=== PATIENT | female | born 1990 | race Caucasian/White ===

== ENCOUNTER 2024-10-23 08:00 | Outpatient (RCR) | payer SELFPAY ==
--- NOTE | 2024-10-23 09:00 | BH.COMM_ITS ---
Communication Note Communication with Client Communication Note: Met with pt to complete paperwork, update any changes to pre-admission screening, and complete risk assessment. Low-moderate risk on [place] Suicide Screening. Denies any suicidal ideations for the past 4 weeks. Protective factors. Consulted with Dr. Engel regarding current symptoms with orders to admit to IOP with dx of F33.2
--- NOTE | 2024-10-23 09:05 | BH.SGPN.GN ---
Behaviors/Verbalizations/Mental Status: [] Eye contact is good. Motor activity is appropriate. Appearance is casual. Speech is Appropriate. Mood is euthymic. Affect is full. Thoughts are linear and logical. No evidence of psychosis. Reviewed daily check in sheet and pt reports 1/5 for suicidal thoughts and 1/5 for intent. Risk assessment completed prior to group. No imminent risk. Client Response/Progress/Benefit: [] Pt participated when prompted. Attentive. Daily symptom tracker notes 4/5 for depression, 5/5 for anxiety, and 4/5 for agitation. Today was pt?s first day in IOP level of care. Briefly shared a little about herself and what led to her seeking out IOP. Pt reports depression and anxiety which have significantly impacted her functioning in the past several months. No progress noted as this was her first day. Group provided support as well as feedback for her first day in IOP which was beneficial. Will continue in IOP to maintain safety, prevent decompensation, increase healthy coping, and improve functioning to return to work Narrative Note: []
--- NOTE | 2024-10-23 10:10 | BH.SGPN.GN ---
Behaviors/Verbalizations/Mental Status: [] Client alert and oriented, casually dressed and groomed. Eye contact good. Motor activity appropriate. Speech within normal limits. Affect congruent, mood depressed and anxious. Thoughts linear, logical, no signs of hallucinations or delusions. Client Response/Progress/Benefit: [] Client responded well to session AEB contributing to discussion, taking notes, and listening attentively to others. Group discussed the benefits of managed anger and anger as a secondary emotion. Client participated in anger iceberg discussion. Group reported outward personal signs of anger as lashing out verbally, physical fights, destruction of property, self-harm, and self-sabotage. Group Identified underlying emotions that contribute to anger including being dismissed, rejection, assumptions, being lied too, and micromanaging. Appeared to benefit from increased knowledge of the underlying emotions that impact anger and increased self-awareness of the internal and external consequences of anger. Client will continue IOP program to stabilize mood, reduce negative thinking patterns, and prevent decompensation. Narrative Note: []
--- NOTE | 2024-10-23 11:10 | BH.SGPN.GN ---
Behaviors/Verbalizations/Mental Status: [] client alert and oriented, casually dressed and groomed. Eye contact good. Motor activity appropriate. Speech within normal limits. Affect congruent, mood euthymic. Thoughts linear, logical, no signs of hallucinations or delusions. Client Response/Progress/Benefit: [] Client was an engaged participant throughout group AEB client providing input throughout discussion. Client contributed to the continued discussion of how people express anger as well as the underlying emotions of anger. Client participated in group activity that highlighted strategies to cope with anger. Group brainstormed healthy coping skills to help prevent anger and cope with it in the moment which included: mindfulness, deep breathing, journaling, going outside, and music. Client stated would like to try the skill of using temperature change by holding ice to manage anger in the moment. Client appeared to benefit from brainstorming with the group potential strategies to manage anger in healthy ways. Recommended continued IOP to improve healthy coping, improve daily functioning, and prevent decompensation.
--- NOTE | 2024-10-24 09:05 | BH.SGPN.GN ---
Behaviors/Verbalizations/Mental Status: [] Eye contact is good. Motor activity is appropriate. Appearance is casual. Speech is Appropriate. Mood is anxious. Affect is congruent. Thoughts are linear and logical. No evidence of psychosis. Reviewed daily check in sheet and pt reports 1/5 for suicidal ideations and 0/5 for intent. Improvement from yesterday. Client Response/Progress/Benefit: [] Pt was an active participant in group discussions. Attentive. Daily symptom tracker notes 4/5 for anxiety and 3/5 for agitation as well as depression. Pt was able to identify mental health wins which included good night's sleep and utilizing skills to encouraged acceptance and decrease guilt. Feeling hopeful today. Briefly shared that she continues to have bad self-talk which impacts her emotions and behaviors. Progress noted. Benefited from group support, encouragement, and feedback. Will continue in IOP to prevent decompensation, increase healthy coping, and improve functioning. Narrative Note: []
--- NOTE | 2024-10-24 10:10 | BH.SGPN.GN ---
Behaviors/Verbalizations/Mental Status: []Eye contact is good. Motor activity is appropriate. Appearance is casual. Speech is Appropriate. Mood is anxious. Affect is congruent. Thoughts are linear and logical. No evidence of psychosis. Client Response/Progress/Benefit: [] Pt participated in the group discussions AEB providing input and taking notes at times. Attentive during psychoeducation on SMART Goal Setting. Pt worked with group to identify common barriers to goal setting which included; mental health struggles, energy/motivation, limited support, change to routine, lack or resources, having unrealistic goals, and our internal expectations. Group also identified benefits of goals, which included: promotes a sense of accomplishment, it challenges oneself, can boast confidence, and can cause positive change/growth. Pt able to identify personal benefits to goal setting. Benefited from increased awareness of mental health benefits of goals as well as psychoeducation on SMART goal criteria. Will continue in IOP to increase consistent healthy coping skills, challenge negative thoughts, and prevent decompensation.
--- NOTE | 2024-10-24 11:10 | BH.SGPN.GN ---
Behaviors/Verbalizations/Mental Status: [] Pt alert and oriented. Appearance is casual, hygiene is appropriate. Eye contact good. Motor activity appropriate. Speech within normal limits. Affect is dysthymic. Mood is constricted. Thoughts linear, logical, no signs of hallucinations or delusions. Client Response/Progress/Benefit: [] Pt was engaged during discussion and experiential activity. Completed the worksheet challenging them to develop a personal SMART goal. Pt chose a SMART goal to go on one mile walk at least 6 days a week. Believes this goal will benefit her by improving her physical health. Identified obstacles such as all or nothing thinking and procrastination. Pt able to identify several solutions to help overcome barriers. Benefited from this group by developing a short-term SMART goal related to mental health. Will continue IOP to challenge distorted thoughts, improve consistent use of healthy coping skills, and prevent decompensation.
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
--- NOTE | 2024-10-25 07:43 | BH.DR.ITP ---
Initial Treatment Plan Patient Information Visit Information: ADMISSION DATE: EXPECTED LOS: 4-6 weeks Problems/Symptoms Problem #1:: Depression Symptom:: Problems with sleep, suicidal ideation, irritability, poor concentration Problem #2:: Anxiety Symptom:: Panic type symptoms, poor sleep, problems with concentration, hypervigilance
--- NOTE | 2024-10-25 10:10 | BH.NA ---
Physical Data Vital Signs Pulse Rate: 82 Blood Pressure: 116/72 Height/Weight Height: 1.63 m Weight:: 82.554 kg Weight in Pounds: 182.0 lbs Current Medication Compliance Medication Compliance Do you take your medication as prescribed?: Yes Functional Assessment Sleep Pattern Describe any problems with sleeping: Client states sleep varies and states this is a current struggle. States she sleeps about 6-9 hours per night. 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 If so, list type and date:: Yes ( x 2, tubal, L ACL, wisdom teeth, LEEP) Substance Abuse Substance Abuse Please describe substance abuse in the last 30 days:: Client states her alcohol use varies, but states she has noted overall she has used more alcohol in the last year. Client states she has had 5 drinks in the last 3 days. Client states some weeks she doesn't drink at all, and some weeks she has up to 7-8 drinks per week. Client denies tobacco or substance use. Client states she is trying to cut down on caffeine use, stating she is trying to make sure she stays under 300mg per day with either 1 medium coffee or 1 energy drink per day. Mental Status Summary Mental Status Significant Findings/Observations on Appearance and Mood:: Client is alert and oriented x 4. Client is casually groomed with good hygiene. Client is cooperative with assessment. Client makes good eye contact. Client's voice has normal rate and volume. Client has appropriate affect. Client makes logical associations and has normal processing. Client denies delusions/hallucinations. Client denies SI this week, but states she did have some passive SI 2 weeks ago. Suicide Assessment Suicidal Ideation Are you currently or have you been suicidal in the past?: Yes Suicidal Intentional Rating Scale (SIRS): Suicidal thoughts (past) Physician Notification Past Psychiatric History MH Treatment Hx Past Psychiatric Medications:: Buspar, Topamax, Xanax, Wellbutrin, Adderall (did not like) Age of first mental health symptoms: Client states she first felt she had anxiety in high school and first took medications for anxiety around age 17-20. Client states this past spring, she was diagnosed with ADHD. Describe (age, circumstance, etc) any past hospitalizations: None. Current providers for mental health treatment (counselor, psychiatrist, shoe parts caser, etc.): [facility] - has a PA for psychiatry and plans to see a specific therapist there when the therapist returns from maternity leave Fall Risk Assessment Age Age: Less than 60 Mental Status Mental Status: Willing & able to ask for assistance when needed Physical Status Physical Status: No problems Impairments Impairments: None Elimination Elimination: Continent AND independent Gait or Balance Gait or Balance: Walks independently Hx of Falls History of falls in the past 6 months: No known history Medications/Substances Psychotropics:: Antidepressants Others:: Antihypertensives Medications/substances used within the past 24 hours or ordered to administer: 1-2 of the medications/substances listed above Total Score Total Points:: 1 RN Summary of Impressions Impressions Recommendations Impressions: Psychiatric Issues: generalized anxiety disorder, major depressive disorder Level of Care How do the client's current symptoms and functional deficits support need for this level of care?: Client was referred to IOP by Paula Oreilly for increased anxiety, depression and SI. Client states the last 6 months have been a huge struggle for her with her mental health. Client states she has been on FMLA from work since August 2024, stating work was a stressor. Client states her mental health overall has been a rollercoaster since becoming a mom for the first time 7 years ago, but states the last 6 months have been worse with sustained depression, anxiety and suicidal thoughts. Client states she did have some SI about 2 weeks ago, but denies in the last week. Client reports decreased desire to get out of bed most days, anger, and feeling like she is in fight or flight most of the time. IOP will promote gains and prevent further decompensation while providing social support and skills training. Nutritional Screen Height/Weight Height: 1.63 m Weight:: 82.554 kg Weight in Pounds: 182.0 lbs Nutrition Screening Normal Weight: 86.183 kg Normal/Usual Weight in Pounds: 190.0 lbs Have you lost weight without trying: No (has been trying to lose weight, took semiglutide for 1 month) Have you been eating poorly because of a decreased appetite: No Recently been on tube feeds, TPN, or have any nutritional access device in place: No Have any large open wounds or wounds that are not healing: No Calculated Weight Change: [phone] Change in weight Score: 1 MST Screening Tool Score: 1
--- NOTE | 2024-10-25 10:10 | BH.SGPN.GN ---
Behaviors/Verbalizations/Mental Status: [] Eye contact is good. Motor activity is appropriate. Appearance is casual. Speech is Appropriate. Mood is euythmic. Affect is congruent. Thoughts are linear and logical. No evidence of psychosis Client Response/Progress/Benefit: [] Pt receptive of session, actively engaged throughout AEB taking notes, providing input, and contributing in group discussion. Appeared to connect with group topic of automatic thoughts and cognitive distortions, as well as the impact of thought patterns on mental health, coping behaviors, and relationships. This particular group is very heavy on psychoeducation and pt appeared to connect with distortions and how they can impact functioning. Identified struggling with mental filter distortions. Pt appeared to benefit from gaining insight on distorted thinking patterns and how this impacts overall mental health. Will continue IOP to stabilize mood, improve ability to function, and prevent decompensation. Narrative Note: [] Behaviors/Verbalizations/Mental Status: [] Eye contact is good. Motor activity is appropriate. Appearance is casual. Speech is Appropriate. Mood is euythmic. Affect is congruent. Thoughts are linear and logical. No evidence of psychosis Client Response/Progress/Benefit: [] Pt receptive of session, actively engaged throughout AEB taking notes, providing input, and contributing in group discussion. Appeared to connect with group topic of automatic thoughts and cognitive distortions, as well as the impact of thought patterns on mental health, coping behaviors, and relationships. This particular group is very heavy on psychoeducation and pt appeared to connect with distortions and how they can impact functioning. Identified struggling with mental filter distortions. Pt appeared to benefit from gaining insight on distorted thinking patterns and how this impacts overall mental health. Will continue IOP to stabilize mood, improve ability to function, and prevent decompensation. Narrative Note: [] Behaviors/Verbalizations/Mental Status: [] Eye contact is good. Motor activity is appropriate. Appearance is casual. Speech is Appropriate. Mood is euythmic. Affect is congruent. Thoughts are linear and logical. No evidence of psychosis Client Response/Progress/Benefit: [] Pt receptive of session, actively engaged throughout AEB taking notes, providing input, and contributing in group discussion. Appeared to connect with group topic of automatic thoughts and cognitive distortions, as well as the impact of thought patterns on mental health, coping behaviors, and relationships. This particular group is very heavy on psychoeducation and pt appeared to connect with distortions and how they can impact functioning. Identified struggling with mental filter distortions. Pt appeared to benefit from gaining insight on distorted thinking patterns and how this impacts overall mental health. Will continue IOP to stabilize mood, improve ability to function, and prevent decompensation. Narrative Note: [] Behaviors/Verbalizations/Mental Status: [] Eye contact is good. Motor activity is appropriate. Appearance is casual. Speech is Appropriate. Mood is euythmic. Affect is congruent. Thoughts are linear and logical. No evidence of psychosis Client Response/Progress/Benefit: [] Pt receptive of session, actively engaged throughout AEB taking notes, providing input, and contributing in group discussion. Appeared to connect with group topic of automatic thoughts and cognitive distortions, as well as the impact of thought patterns on mental health, coping behaviors, and relationships. This particular group is very heavy on psychoeducation and pt appeared to connect with distortions and how they can impact functioning. Identified struggling with mental filter distortions. Pt appeared to benefit from gaining insight on distorted thinking patterns and how this impacts overall mental health. Will continue IOP to stabilize mood, improve ability to function, and prevent decompensation. Narrative Note: []
[2024-10-25 10:40] VITALS: BP 116/72; PULSE 82
--- NOTE | 2024-10-25 14:38 | BH.MDN ---
Multi-Disciplinary Note Note 30-min Individual: Time Started:: 11:20 Date: 10/25/24 Purpose of session/treatment goals addressed:: Purpose of session was to build rapport, gather background information, and solidify treatment goals. Eye Contact:: Good Motor Activity:: Appropriate Appearance:: Casual Speech:: Appropriate Mood:: Euthymic and Anxious Affect:: Congruent Thoughts:: Linear, Logical and No evidence of hallucinations/delusions noted Staff Interventions:: psychoeducation on: (Cognitive triangle), CBT techniques, strengths perspective, treatment planning and goal setting Client Response:: Client reported so far she is enjoying her first week in [facility]. Client stated she finds it helpful to have this report and learning skills from group therapy. Client reported she has been working on the [place] group of walking at least 1 mile every day. Client reported she has been having some difficulty this week with adjusting to her new routine since she is staying at her dad's house 3 nights a week in order to did not have to drive over an hour every day to [facility]. Client stated she has realized starting next week when she returns she is going to have to make some changes because her dad and stepmom's routine is very different than what she is used to. Client reported she needs to be more prepared to eat her own dinner earlier in the evening and to make sure she goes to the bed around 9:00 each night. Client shared another thing that has been hard staying with her dad is the fact that her dad and stepmom drink every night. Client reported this has resulted in her drinking every night. Client stated 2 of the nights she had 2 drinks and last night she consciously made a decision to only have 1 drink. Client reported she does not want to get back into drinking every night like she was previously. Client stated she personally has a goal to go 10 days without having an alcoholic beverage. Client and therapist discussed strategies that could help her decrease the urge to join with others and drinking alcohol. Client connected with psychoeducation about cognitive triangle and behavior activation. Client connect how she finds herself into a vicious cycles of engaging in behavior or thought patterns that make her feel worse or continue to maintain her depression and anxiety. Client open to starting a behavior activation check list that she will fill out every day she comes [facility]. Client noted the 3 tasks that she wants to focus and on is walking 8000 steps 6 days a week, drinking more water daily, and starting to track the calories in her drinks. Client stated tracking calories has been helpful for her because she realized get her day by getting large [place] iced coffee she was having significant amount of sugar and calories and had been doing that daily. Client noted she realizes what she puts in her body can be negatively impacted with her mental health. Client stated she does not go to an extreme with her tracking and has found it to be useful in creating more balance with what she eats and drinks. Client stated she believes that she focuses on these 3 things began with it will benefit her mental health because she would like caring for her physical health. Risks/Concerns:: Denies current suicidal nation, plan, intention. Progress Toward Goals/Plan:: Progress note with client reporting slight improvement in mood over the last few days. Client stated she has been following through with the goal she made in her first day of walking 1 mile each day. Client shared while she is in IOP she would like to work on learning strategies to help her consistently apply the skills and strategies she is learning. Client noted she does have a lot of education awareness about strategies and mental health skills because she has read a lot of books and listened to a lot of self-help podcasts but notes that she often struggles with the follow-through. Plan is for client to continue IOP to improve daily functioning, and mood follow-through of healthy coping skills, and prevent decompensation. Time Stopped:: 11:50
--- NOTE | 2024-10-25 15:08 | BH.MTP ---
Master Treatment Plan Patient Information Program Physician:: Dr. Engel Primary Therapist:: Sophia Madrigal [facility] Psychiatric Diagnoses Psychiatric Diagnoses:: Major depressive disorder Generalized anxiety disorder Diagnosis Code(s):: F33.2; F41.1 Problem/Goal #1 Problem/Goal #1 Stated Goal:: Client will reduce depression, feelings of hopelessness, and suicidal ideation due to Major Depressive Disorder through Intensive Outpatient Program.? Description of Barriers: Potential barriers to treatment include: negative thought patterns, anxiety with being away from her family for three days, distorted thought patterns, low motivation, and sleep issues. Functional Impact: Patient was referred by a family friend. Patient admits to having had anxiety and depression since college age. Particularly since November of last year had suicidal ideation of wanting to complete suicide by gunshot. Had thoughts that if I had a gun, this would of been it. Did not go to the hospital following this time. In July of 2023 had started working fulltime outside of the home. Is currently on leave from work since the 06 of September with a return to work date of November 28 or . Client notes mental health has been impacting her ability to function at work with completing tasks, which was contributing factor to taking leave from work. Client's mental health impacting sleep quality, difficulty concentrating, appetite increased, and low energy. 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 Objectives Objective #1: Stated Objective: Client will learn and utilize 2-3 healthy coping strategies to manage depressive symptoms. Interventions: Therapist will utilize CBT techniques to assist client with understanding the connection between thoughts, feelings and behaviors. Education will be provided on behavioral activation. Therapist will assist client in learning internal coping strategies to manage depressive symptoms, along with helping client identify triggers. Discharge Criteria: Client will have achieved this goal when can verbalize and has practiced at least 2 healthy coping strategies that successfully manage depressive symptoms. Target Date: 12/04/24 Review Date: 11/20/24 Objective #2: Stated Objective: Client will identify 2-3 depressive thinking patterns and be able to challenge and replace negative thoughts. Interventions: Therapist and group therapy sessions will assist client in identifying depressive thinking patterns and provide client with resources to help teach client strategies in defeating negative thoughts. Discharge Criteria: Client will have met this objective when can identify at least two depressive thinking patterns and be able to defeat depressive and suicidal thoughts. Target Date: 12/04/24 Review Date: 11/20/24 Problem/Goal #2 Problem/Goal #2 Stated Goal:: Client will reduce overall frequency, intensity, and duration of the anxiety so that daily functioning is not impaired. Description of Barriers: Potential barriers to treatment include: negative thought patterns, anxiety with being away from her family for three days, distorted thought patterns, low motivation, and sleep issues. Functional Impact: Patient was referred by a family friend. Patient admits to having had anxiety and depression since college age. Particularly since November of last year had suicidal ideation of wanting to complete suicide by gunshot. Had thoughts that if I had a gun, this would of been it. Did not go to the hospital following this time. In July of 2023 had started working fulltime outside of the home. Is currently on leave from work since the 06 of September with a return to work date of November 28 or . Client notes mental health has been impacting her ability to function at work with completing tasks, which was contributing factor to taking leave from work. Client's mental health impacting sleep quality, difficulty concentrating, appetite increased, and low energy. 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 Objectives Objective #1: Stated Objective: Client will learn and implement 2-3 calming skills to reduce overall anxiety and manage anxiety symptoms. Interventions: Therapist and group sessions will help client identify physiological warning signs of anxiety, increase awareness of thoughts that increase anxiety, and identify behaviors that reinforce anxious symptoms. Group and individual counseling will teach client calming skills to help manage anxious symptoms. Discharge Criteria: Client will have achieved this goal when can verbalize at least 2 calming skills and reports skills successfully help reduce anxious symptoms. Target Date: 12/04/24 Review Date: 11/20/24 Objective #2: Stated Objective: Client will learn and implement 2-3 problem solving strategies to realistically addressing worries. Interventions: Therapist and group therapy will teach client problem-solving strategies involving defining a problem, brainstorming solutions, selecting and implementing various solutions. Discharge Criteria: Client will have achieved this goal when can verbalize at least two problem solving strategies and utilize the strategies to realistically address worries. Target Date: 12/04/24 Review Date: 11/20/24
--- NOTE | 2024-10-30 09:00 | BH.SGPN.GN ---
Behaviors/Verbalizations/Mental Status: [] Eye contact is good. Motor activity is appropriate. Appearance is casual. Speech is Appropriate. Mood is content. Affect is congruent. Thoughts are linear and logical. No evidence of psychosis. Reviewed daily check in sheet and pt reports 0/5 for suicidal thoughts and 0/5 for intent. Client Response/Progress/Benefit: [] Pt participated when prompted. Attentive. Daily symptom tracker notes 3/5 for anxiety/irritability and 1/5 for depression. Emotion for today is grateful. Mental health wins reported to be using living in the [place] and sitting with discomfort to challenge all or nothing thoughts and work on her basement for one hour yesterday. Additional win noted as setting a boundary with herself and not drinking alcohol when staying at her father's house. Current stressor noted as ongoing issues with sleep. Progress noted per pt report. Benefited from group support, encouragement, and feedback. Will continue in IOP to prevent decompensation, improve mood stability, and increase healthy coping. Narrative Note: []
--- NOTE | 2024-10-30 10:10 | BH.SGPN.GN ---
Behaviors/Verbalizations/Mental Status: []Pt alert and oriented, casually dressed and groomed. Eye contact good. Motor activity appropriate. Speech within normal limits. Affect congruent, mood euthymic. Thoughts linear, logical, no signs of hallucinations or delusions. Client Response/Progress/Benefit: []Pt was an active participant in group discussion and activity. Attentive during psychoeducation. Along with peers, pt was able to identify barriers to taking action in their life. Identified several symptoms and stressors that pt feels are holding them back from progress. Pt identified figuring out her identity, alcohol use and poor sleep are things that can hold her back. Pt able to identify how these things have negatively impacted progress. Benefited from increased self-awareness of obstacles. Pt will continue IOP to challenge distorted thoughts, improve consistent healthy coping skills, and prevent decompensation.
--- NOTE | 2024-10-30 11:10 | BH.SGPN.GN ---
Behaviors/Verbalizations/Mental Status: []Pt alert and oriented, neatly dressed and groomed. Eye contact good. Motor activity appropriate. Speech within normal limits. Affect congruent, mood euthymic and anxious. Thoughts linear, logical, no signs of hallucinations or delusions. Client Response/Progress/Benefit: [] Pt responded well to session, taking notes and participating in worksheet discussion. Pt connected with the discussion on action steps, and this helped pt learn how to set goals differently. Pt set a SMART goal that pt will ?avoid alcohol for the next 10 days.? Pt noted that she can reach out to her family for encouragement and accountability. Pt also feels she would benefit from having other options ?readily available.? ?Appeared to benefit from identifying a small goal to benefit mental health. Pt is to continue IOP tx to prevent decompensation, improve daily functioning, and gain healthy coping skills. Narrative Note: []
--- NOTE | 2024-10-31 09:05 | BH.SGPN.GN ---
Behaviors/Verbalizations/Mental Status: [] Pt alert and oriented, casually dressed and groomed. Eye contact good. Motor activity appropriate. Speech within normal limits. Affect congruent, mood dysthymic. Thoughts linear, logical, no signs of hallucinations or delusions. Reviewed pt?s symptom tracker, no reported Si, plan, or intention. Client Response/Progress/Benefit: []Pt was an active participant in group discussions. Attentive. Pt stated that her mental health positives as not drinking alcohol the last two days which is something she is trying to work on. Client reported verbalizing to her step-mom that she doesn't want to drink and having a fun non-alcoholic drink as a replacement option helped her not drink. Pt stated additional mental health positive as facetiming her and son. Pt reported her stressor as feeling slightly discouraged with her sleep being more of a struggle recently. Pt seemed to benefit from support from peers. Will continue IOP services to increase utilization of healthy coping skills, challenge all or nothing thinking, and prevent decompensation.
--- NOTE | 2024-10-31 10:05 | BH.SGPN.GN ---
Behaviors/Verbalizations/Mental Status: [] Eye contact is good. Motor activity is appropriate. Appearance is casual. Speech is Appropriate. Mood is content. Affect is congruent. Thoughts are linear and logical. No evidence of psychosis. Client Response/Progress/Benefit: [] Pt engaged participant AEB listening to others, engaging in activity, and providing feedback throughout. Attentive during psychoeducation and provided insight into obstacles that impede mental wellness. Pt shared with group current mental health reality and desired mental health reality. Identified barriers to desired reality which included difficulties with setting boundaries and communicating needs and negative self-talk. Benefited from taking look at current mental health state and obstacles for progress. Pt to continue in IOP tx to prevent decompensation, stabilize mood, and improve functioning. Narrative Note: []
--- NOTE | 2024-10-31 11:10 | BH.SGPN.GN ---
Behaviors/Verbalizations/Mental Status: [] Eye contact is good. Motor activity is appropriate. Appearance is casual. Speech is Appropriate. Mood is depressed and anxious. Affect is congruent. Thoughts are linear and logical. No evidence of psychosis. Client Response/Progress/Benefit: [] Pt was an engaged participant in group discussion and activity. Worked with group to identify strategies to help overcome barriers and obstacles to desired reality. Group developed strategies for the common barriers. Identified personal barriers to desired reality which included negative self-talk, need for control, and absolute thinking. Was able to identify a skill to implement immediately to address absolute thinking. Pt seemed to benefit from increased repertoire of healthy coping skills/strategies to overcome common barriers to moving forward. Will continue in IOP to prevent decompensation, increase healthy coping,and improve functioning. Narrative Note: []
--- NOTE | 2024-11-01 10:15 | BH.SGPN.GN ---
Behaviors/Verbalizations/Mental Status: []Pt alert and oriented, neatly dressed and groomed. Eye contact good. Motor activity appropriate. Speech within normal limits. Affect congruent, mood euthymic. Thoughts linear, logical, no signs of hallucinations or delusions. Client Response/Progress/Benefit: [] Pt was attentive during psychoeducation and participated in group activity. Group discussed what influences a person?s perspective and how perspective can positively or negatively impact mental health treatment. Group identified several factors that can influence perspective which include; mood, current stressors, sleep, health, hunger, and several others.?Pt appeared to benefit from increasing awareness of different perspectives and how they can affect mental health. Pt noted that their perspective today is ?I have hope that is pulling me forward, but my patience is holding me back.? Pt will continue IOP tx to prevent decompensation, gain healthy coping skills, and improve daily functioning. Narrative Note: []
--- NOTE | 2024-11-01 11:10 | BH.SGPN.GN ---
Behaviors/Verbalizations/Mental Status: []Pt alert and oriented, casually dressed and groomed. Eye contact good. Motor activity appropriate. Speech within normal limits. Affect congruent, mood euthymic. Thoughts linear, logical, no signs of hallucinations or delusions. Client Response/Progress/Benefit: [] Pt was attentive and contributed to group discussion. Pt worked with group to identify strategies that can help with challenging negative perspective. Pt stated she wants to practice changing environment and adjusting expectations that are strategies that can help her challenge a negative perspective. Benefited from identifying strategies that can help with improving perspective and identifying one strategy to focus on to improve current perspective. Pt will continue IOP tx to challenge distorted thoughts, increase consistent use of healthy coping skills, and prevent decompensation. .
--- NOTE | 2024-11-01 14:44 | BH.MDN ---
Multi-Disciplinary Note Note 45-min Individual: Time Started:: 09:10 Date: 11/01/24 Purpose of session/treatment goals addressed:: Purpose of session was to address goals 1 and 2 from MTP. Eye Contact:: Good Motor Activity:: Appropriate Appearance:: Casual Speech:: Appropriate Mood:: Anxious Affect:: Congruent Thoughts:: Linear, Logical and No evidence of hallucinations/delusions noted Staff Interventions:: thought challenging, CBT techniques, strengths perspective, goal setting and taught coping skills Client Response:: Client reported she has been following through with her goal of not having an alcoholic drink for 10 days and currently she is at 3 days of not drinking. Client stated she has been trying to implement new routine this week while staying at her dad's house. Client stated she communicated to her dad and stepmom that she would like to and refrain from drinking for 10 days so that they could support her in the school. Client stated there are moments in which this was challenging because they continued to drink but client drank a special kind of soda instead of having a alcoholic drink when hanging out with her dad and stepmom. Client stated she is more concerned about being able to keep herself from drinking when she returns home this evening because she knows her will drink every day. Client and therapist worked together to identify different strategies that she can utilize to help her refrain from drinking alcohol while she is back home. Therapist encouraged client to communicate to her the importance of the goal and explaining to her why she wants to do this. Time Stopped:: 10:00
--- NOTE | 2024-11-06 09:00 | BH.SGPN.GN ---
Behaviors/Verbalizations/Mental Status: [] Client alert and oriented, casual appearance. Eye contact good. Motor activity appropriate. Speech within normal limits. Affect congruent, mood euthymic. Thoughts linear, logical, no signs of hallucinations or delusions. Reviewed client's symptom tracker, no risk for suicidal ideation, plan, or intent. Client Response/Progress/Benefit: [] Client responded well to session AEB listening to others and sharing thoughts/feelings. Client reported mental positive as getting back into reading. Client noted it felt good to be able to concentrate and enjoy a book. Client reported additional positive as completing a ton of chores and tasks earlier this week. Client noted current stressor as feeling upset she had a rough Monday with lots of various triggers. Appeared to benefit from support from peers. Will continue IOP tx to promote healthy coping skills, challenge distorted thoughts, and prevent decompensation.
--- NOTE | 2024-11-06 10:10 | BH.SGPN.GN ---
Behaviors/Verbalizations/Mental Status: []Pt alert and oriented, neatly dressed and groomed. Eye contact good. Motor activity appropriate. Speech within normal limits. Affect congruent, mood anxious. Thoughts linear, logical, no signs of hallucinations or delusions Client Response/Progress/Benefit: [] Pt took notes and contributed to group discussions. Attentive during psychoeducation on growth mindset. Interactive group discussion on fixed mindset in which group verbalized their current fixed mindsets and how they affect their mental health. Pt shared common fixed mindset thoughts they have. Pt shared a personal fixed thought I never finish anything and I?m going to mess up my child.? Pt able to connect negative impact fixed thoughts have on functioning. Pt benefited from increased awareness of growth mindset and fixed thoughts and how fixed thoughts impact their mental health. Will continue IOP tx to reduce use of unhealthy coping skills, improve distress tolerance, and improve daily functioning. Narrative Note: []
--- NOTE | 2024-11-06 11:15 | BH.SGPN.GN ---
Behaviors/Verbalizations/Mental Status: []Pt alert and oriented, casually dressed and groomed. Eye contact good. Motor activity appropriate. Speech within normal limits. Affect congruent, mood content. Thoughts linear, logical, no signs of hallucinations or delusions. Client Response/Progress/Benefit: [] Pt was an active participant during activity and discussion. Pt did well to remain attentive and participate as group worked on identifying characteristics and benefits of adopting a growth mindset. Worked with fellow participants in reframing the example fixed thoughts into growth mindset thoughts. Pt worked on changing own fixed thought. Pt?s reframed thought was ?I am continuing to grow and learn the skills I need to improve.? Pt attentive during discussion about different strategies that can help with fostering a growth mindset. Pt appeared to benefit from challenging own thoughts and engaging in the activity. Pt will continue IOP tx to increase distress tolerance, improve self-compassion, and prevent decompensation. Narrative Note: []
--- NOTE | 2024-11-07 09:05 | BH.SGPN.GN ---
Behaviors/Verbalizations/Mental Status: [] Eye contact is good. Motor activity is appropriate. Appearance is casual. Speech is Appropriate. Mood is depressed and anxious. Affect is congruent. Thoughts are linear and logical. No evidence of psychosis. Reviewed daily check in sheet and no reports of suicidal ideations or intent. Client Response/Progress/Benefit: [] Pt participated at times during the group discussions. Attentive. Daily symptom tracker notes /5 for anxiety and /5 for depression. Able to identify mental health wins and healthy habits. She is working on reframing and challenging thoughts. Realizes the she constantly ? beats myself up? for struggling with mental health. Her perspective was that her mental health issues were only temporary like an infection. Insight that it would be more beneficial to acceptance and work on her mental health daily rather than expect to to disappear. She likened this to addiction. Progress noted. Benefited from group support, encouragement, and feedback. Will continue in IOP to prevent decompensation, increase healthy coping, and improve functioning to return to work. Narrative Note: []
--- NOTE | 2024-11-07 10:10 | BH.SGPN.GN ---
Behaviors/Verbalizations/Mental Status: [] Eye contact is good. Motor activity is appropriate. Appearance is casual. Speech is Appropriate. Mood is euthymic. Affect is congruent. Thoughts are linear and logical. No evidence of psychosis. Client Response/Progress/Benefit: [] Pt was engaged and participating throughout, providing input and taking notes. Attentive during psychoeducation on anxiety and cognitive triangle. Participated in an interactive discussion on defining anxiety and identifying cognitive and physiological symptoms of anxiety. The group discussed helpful vs harmful anxiety. Pt identified their physical/physiological signs of anxiety which includes: rapid heart beat, sweating, and tense muscles. Benefited from increased awareness and insight on anxiety and its impact. Will continue in IOP to prevent decompensation, stabilize mood, and promote use of healthy coping skills.
--- NOTE | 2024-11-07 11:15 | BH.SGPN.GN ---
Behaviors/Verbalizations/Mental Status: []Pt alert and oriented, casually dressed and groomed. Eye contact good. Motor activity appropriate. Speech within normal limits. Affect congruent, mood euthymic. Thoughts linear, logical, no signs of hallucinations or delusions. Client Response/Progress/Benefit: [] Pt was an active participant AEB pt providing input and listening attentively to peers. Attentive during psychoeducation on mindfulness coping skills and their impact on reducing anxiety and improving overall mental health wellness. Group was able to identify self-soothing and mind-based coping skills which included: 5-senses, meditation, deep breathing, TIPP, thought challenging, categories, and progressive muscle relaxation. Pt would like to work on using deep breathing and guided meditation more regularly to reduce anxiety. Appeared to benefit from increasing repertoire of anxiety reduction skills. Pt will continue IOP to increase distress tolerance skills, improve self-compassion, and reduce use of unhealthy coping skills. Narrative Note: []
--- NOTE | 2024-11-08 10:10 | BH.SGPN.GN ---
Behaviors/Verbalizations/Mental Status: [] Pt alert and oriented, casually dressed and groomed. Eye contact good. Motor activity appropriate. Speech within normal limits. Mood: depressed. Affect: congruent. Thoughts linear, logical, no signs of hallucinations or delusions. Client Response/Progress/Benefit: [] Pt was an active participate during group discussions. Attentive during psychoeducation on self-sabotage and its impact on mental health. Worked with peers to define self-sabotage and identify reasons individuals perform self-sabotage behaviors (easy route at the time, feel as those we don't deserve any better, FOF, comfortable, etc). Pt identified the forms of self-sabotage that impact their mental health. Attentive during psychoeducation on types of self-sabotage; Procrastination, perfectionism, self-medication, poor communication,and chronic cancelling. Seemed to benefit from gaining awareness about the self-sabotage. Pt to continue IOP tx to prevent decompensation, increase healthy coping, and improve functioning to return to work. Narrative Note: []
--- NOTE | 2024-11-08 11:10 | BH.SGPN.GN ---
Behaviors/Verbalizations/Mental Status: []Pt alert and oriented, casually dressed and groomed. Eye contact good. Motor activity appropriate. Speech within normal limits. Affect congruent, mood content. Thoughts linear, logical, no signs of hallucinations or delusions. Client Response/Progress/Benefit: []Pt responded well to session, engaged and contributing. Pt discussed with group things that contribute to mental wellness life. With peers, pt discussed things that would sabotage one's mental health wellness. Pt identified things pt personally does to sabotage as procrastination, self-medicating, and sleeping. Pt attentive during psychoeducation on ways to reduce self-sabotage and pt selected asking recognize, refuse, and replace as the skill that could help pt reduce self-sabotaging behaviors. Pt appeared to benefit from learning skills and gaining awareness of self-sabotaging behaviors. Pt will continue IOP tx to prevent decompensation, improve daily functioning, and gain distress tolerance skills. ? Narrative Note: []
--- NOTE | 2024-11-13 09:00 | BH.SGPN.GN ---
Behaviors/Verbalizations/Mental Status: [] Pt alert and oriented, neatly dressed and groomed. Eye contact good. Motor activity appropriate. Speech within normal limits. Affect congruent, mood anxious. Thoughts linear, logical, no signs of hallucinations or delusions. Reviewed pt?s symptom tracker, no risk for suicidal ideation, plan, and intent 11/13/24. Client Response/Progress/Benefit: []Pt was an active participant in group discussions. Attentive. Per patients daily symptom tracker, pt indicates a 3/5 for depression and a 2/5 for anxiety, with 5 being severe. 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 She also shared another win as making a connection with a stranger at the [employer] over their shared experiences with mental health struggles. Pt stated that she overheard the person talking about their mental health, and challenged herself to reach out and speak with her. She reports this as a very positive experience. The stressor this week was that she continues to beat herself up over her losses or perceived failures. She recognizes that she is hard on herself and had group support in coming up with ways that she could work on black and white thinking. Pt was supportive and attentive to others in the group. Pt seemed to benefit from support from peers. Will continue IOP tx to promote mood stability, reduce negative thinking patterns, and gain self-confidence.
--- NOTE | 2024-11-13 10:10 | BH.SGPN.GN ---
Behaviors/Verbalizations/Mental Status: [] Client alert and oriented, casually dressed and groomed. Eye contact good. Motor activity appropriate. Speech within normal limits. Affect congruent, mood euthymic Thoughts linear, logical, no signs of hallucinations or delusions. Client Response/Progress/Benefit: [] Client responded well to session AEB taking notes throughout and listening attentively to others. Client was attentive throughout group activity identifying famous individuals and how they overcame failure to be successful. Client helped group identify how fear of failure can impact mental health and relationships. Client personally identified it leads to staying stuck. Client participated in experiential activity, working with group members to problem solve. Appeared to benefit from increased knowledge of fear of failure. Will continue IOP tx to improve self-confidence, reduce distorted thinking patterns, and increase emotional regulation skills. Narrative Note: []
--- NOTE | 2024-11-13 11:10 | BH.SGPN.GN ---
Behaviors/Verbalizations/Mental Status: [] Client alert and oriented, casually dressed and groomed. Eye contact good. Motor activity appropriate. Speech within normal limits. Affect constricted, mood euthymic. Thoughts linear, logical, no signs of hallucinations or delusions. Client Response/Progress/Benefit: [] Client responded well to session, engaged in the experiential activity and attentive throughout group processing. Client reported fear of failure has kept client from having peace and adventures. Client completed fear of failure worksheet and was able to identify thoughts and behaviors that reinforce personal fear of failure including past failures. Client participated in small group discussion regarding strategies to overcome fear of failure. Identified wanting to work on celebrating all wins. Appeared to benefit from increased knowledge of strategies to combat fear of failure and gaining self-awareness. Client will continue IOP tx to promote positive thinking patterns and prevent decompensation. Narrative Note: []
--- NOTE | 2024-11-14 09:05 | BH.SGPN.GN ---
Behaviors/Verbalizations/Mental Status: [] Eye contact is good. Motor activity is appropriate. Appearance is casual. Speech is Appropriate. Mood is depressed and irritable. Affect is congruent. Thoughts are linear and logical. No evidence of psychosis. Reviewed daily check in sheet and no reports of suicidal ideations or intent. Client Response/Progress/Benefit: [ Pt participated at times during the group discussions. Attentive. Daily symptom tracker notes 3/5 for anxiety and 2/5 for depression. Able to identify mental health wins and healthy habits. She has reduced her usage of her [employer] watch as it was increasing healthy anxiety and concerns for lack of sleep. Insight and awareness. Also shared with the group recent examples of self-sabotage behaviors. Progress noted mainly in the area of awareness. Benefited from group support, encouragement, and feedback. Will contine in IOP to prevent decompensation, stablize mood, increase healthy coping, and improve functioning to return to work. Narrative Note: []
--- NOTE | 2024-11-14 10:15 | BH.SGPN.GN ---
Behaviors/Verbalizations/Mental Status: [] Eye contact is good. Motor activity is appropriate. Appearance is casual. Speech is Appropriate. Mood is dysthymic. Affect is congruent. Thoughts are linear and logical. No evidence of psychosis. Client Response/Progress/Benefit: [] Client engaged during group session as evidenced by contributions during group discussions, appearing to listen to others, and taking notes. Client engaged in discussion about barriers that keep people from having difficult conversations. Group identified potential reasons individuals avoid difficult conversations which included; feeling uncomfortable, reaction of others, fear, and avoiding conflict. Group also identified benefits to having crucial conversations. Pt identified things they do that impact their communication as making assumptions or being vague. Client seemed to benefit from increased awareness and education about importance of having difficult conversations and recognizing the impact of avoiding such conversations. Client to continue IOP to prevent decompensation, increase healthy coping, and improve functioning. Narrative Note: []
--- NOTE | 2024-11-14 11:15 | BH.SGPN.GN ---
Behaviors/Verbalizations/Mental Status: []Pt alert and oriented, neatly dressed and groomed. Eye contact good. Motor activity appropriate. Speech within normal limits. Affect constricted, mood euthymic. Thoughts linear, logical, no signs of hallucinations or delusions. Client Response/Progress/Benefit: [] Pt was an active participant, engaged in activities and discussion. Pt able to identify ways they negatively contribute to crucial conversations and pt was engaged during psychoeducation of the different ways to build interpersonal effectiveness skills. Pt and peers practiced mirroring and active listening in partners. Group reviewed [employer] and used the handout to help map out how they would like a crucial conversation in their life to go. Pt shared she needs to have more crucial conversations with her , but before she can do this effectively, pt wants to work on not shutting down and not taking things too personally. Pt appeared to benefit from learning and practicing interpersonal effectiveness skills. Pt will continue IOP tx to promote mood stability, reduce all or nothing thinking patterns, and improve daily functioning. ? Narrative Note: []
--- NOTE | 2024-11-15 07:48 | PCM.BH.PN_ITS ---
Intake Vital Signs 10/25/24 10:40 11/15/24 07:48 Height 5 ft 4 in 5 ft 4 in Weight: 182 lb BP 116/72 Pulse 82 BH Intake Allergies acetaminophen (From Darvocet-N) Allergy (Verified 10/25/24 10:27) Other propoxyphene (From Darvocet-N) Allergy (Verified 10/25/24 10:27) Other tioconazole (From Monistat 1 (tioconazole)) Adverse Reaction (Verified 10/25/24 10:27) Swelling Medications ?Medication ?Instructions ?Recorded ?Confirmed ?Type fluoxetine 40 mg capsule 80 mg PO DAILY 10/25/2407/14 History hydroxyzine HCl 25 mg tablet 25 mg PO BID PRN anxiety #60 tabs 10/25/24 Rx loratadine-pseudoephedrine ER 10 1 tab PO DAILY 10/25/24 History mg-240 mg tablet,extended [id number] (Claritin-D 24 Hour) HPI () History of Present Illness History provided by: patient Chief complaint: depression/anxiety HPI: Vera Low is a 33 year old female who presents today for follow up evaluation. Patient reports that she has been good. Describes feeling like things are a roller coaster but not as extreme. Is taking hydroxyzine but unsure of the benefit. Has been limiting her social media use at bedtime which she feels helps with sleep. Has not yet been able to appreciate a major improvement despite the sleep increase. Has noticed that she feels somewhat worse when she drinks. Has been working on not drinking, and plans to go a full week without drinking. Did have a drink last night. Leave from work is supposed to end on November 29, but she has decided that she will not be going back to her current job. Is hoping to get a job at a local [employer]. Considering going back for Master's in Clinical Mental Health. Assessment & Plan () Assessment & Plan (1) Major depressive disorder: Plan: - Continue fluoxetine 80 mg every day for depression; may benefit from adjunct of treatment in the future ?Patient was informed about the risk, benefits and possible side effects of SSRI type medications. These side effects include but are not limited to nausea, diarrhea, headache, increased bleeding risk, and sexual dysfunction. - Take all medications as prescribed.? Please avoid the use of alcohol or drugs.? Attend all outpatient appointments as scheduled.? See your primary care provider if you develop any medical problems.? If you develop thoughts of harming yourself or others please call 911, present to the nearest emergency room, or call the [place] Crisis line at . Resources are also available through the National Suicide Prevention Lifeline at . - Patient demonstrates both the ability and capacity to respond to treatment. Th e length of treatment will likely vary pending on the severity of symptoms and response to medication and behavioral therapies. - The patient will start the IOP in Behavioral Health at [facility] as the structure, support, education and grou therapy with ideally prevent worsening of patient's symptoms whihc could result in admission to higher level of care such as [facility] or psychiatric admission. I have reasonable expectation that the patient will make timely and significant improvement in the presenting acute symptoms as a result of the program and eventually be discha rged to a lower level of care. (2) Generalized anxiety disorder: Plan: - Hydroxyzine 25 mg as needed for both anxiety and sleep - Aware of the risk benefits and possible side effects Visit Details Comments: Spent a total of [ ] minutes on the date of the service which included [ ].
--- NOTE | 2024-11-15 07:48 | PCM.BH.PN ---
Intake Vital Signs 10/25/24 10:40 11/15/24 07:48 Height 5 ft 4 in 5 ft 4 in Weight: 182 lb BP 116/72 Pulse 82 Intake Visit Reasons: Follow-up Allergies acetaminophen (From Darvocet-N) Allergy (Verified 10/25/24 10:27) Other propoxyphene (From Darvocet-N) Allergy (Verified 10/25/24 10:27) Other tioconazole (From Monistat 1 (tioconazole)) Adverse Reaction (Verified 10/25/24 10:27) Swelling Medications ?Medication ?Instructions ?Recorded ?Confirmed ?Type fluoxetine 40 mg capsule 80 mg PO DAILY 10/25/24 10/25/24 History hydroxyzine HCl 25 mg tablet 25 mg PO BID PRN anxiety #60 tabs 10/25/24 Rx loratadine-pseudoephedrine ER 10 1 tab PO DAILY 10/25/24 10/25/24 History mg-240 mg tablet,extended [id number] (Claritin-D 24 Hour) HPI () History of Present Illness History provided by: patient Chief complaint: depression/anxiety HPI: Vera Low is a 33 year old female who presents today for follow up evaluation. Patient reports that she has been good. Describes feeling like things are a roller coaster but not as extreme. Is taking hydroxyzine but unsure of the benefit. Has been limiting her social media use at bedtime which she feels helps with sleep. Has not yet been able to appreciate a major improvement despite the sleep increase. Has noticed that she feels somewhat worse when she drinks. Has been working on not drinking, and plans to go a full week without drinking. Did have a drink last night. Leave from work is supposed to end on November 29, but she has decided that she will not be going back to her current job. Is hoping to get a job at a local [employer]. Considering going back for Master's in Clinical Mental Health. Review of systems () Constitutional Denies: fever(s), chills, change in weight or fatigue Eyes Denies: change in vision or blurry vision Ears, Nose, Mouth, Throat Denies: throat pain, neck pain or change in hearing Cardiovascular Denies: chest pain, palpitations or dyspnea Respiratory Denies: dyspnea, cough or wheezing Gastrointestinal Denies: abdominal pain, nausea, vomiting, diarrhea or constipation Genitourinary Denies: dysuria or urinary frequency Musculoskeletal Reports: joint pain; Denies: back pain, neck pain or muscle weakness Integumentary/Breast Denies: rash or new lesions Neurological Reports: headache(s) (worse in recent past); Denies: dizziness or confusion Endocrine Denies: fatigue or excessive sweating Hematologic/Lymphatic Denies: easy bruising or easy bleeding Allergic/Immunologic Denies: wheezing Exam Mental Status Exam- Psych () Appearance casually dressed and no apparent distress Attitude cooperative Activity/Motor Behavior MSE activity/motor behavior finding no adventitious movements Speech regular rate, regular volume and regular prosody Mood depressed (A roller coaster but not as extreme) Affect congruent Thought Process linear, logical and coherent Thought Content no delusions and no hallucinations Suicidal Ideation passive; Not active, No intent and No plans Homicidal Ideation none Attention intact Concentration intact Sensorium/Orientation awake, alert and oriented x3 Memory/Cognition other (appropriate for stated age) Insight good Judgement good Assessment & Plan () Assessment & Plan (1) Major depressive disorder: Plan: - Continue fluoxetine 80 mg every day for depression - Does have plan to potentially leave her job in the near future which I do believe will impact her mood to a significant extent therefore we will hold medication changes at this time so as to not compound symptoms (2) Generalized anxiety disorder: Plan: - Hydroxyzine 25 mg as needed for both anxiety and sleep - Aware of the risk benefits and possible side effects Charges/Coding Multi Select Codes Behavior Health Behavior Health EST Pt E/M: 91037 Est Pt Level IV
--- NOTE | 2024-11-15 10:10 | BH.SGPN.GN ---
Behaviors/Verbalizations/Mental Status: [] Client alert and oriented, casual appearance. Eye contact good. Motor activity appropriate. Speech within normal limits. Affect congruent, mood anxious. Thoughts linear, logical, no signs of hallucinations or delusions. Client Response/Progress/Benefit: [] Pt receptive to session AEB contributing to small group discussion, as well as listening attentively to others, and taking notes. Worked with group to brainstorm the positive and negative aspects of stress on physical and mental health. Group did well to identify the benefits of stress as well as the impact of distress on performance, relationships, and mental health. Pt identified their personal top stressors as: finances, body image, and poor regulation of emotions towards her children. Patient stated when stress is overwhelming they tend to feel apathetic towards getting basic home responsibilities completed and feel more irritable. Pt seemed to benefit from increased awareness of current stressors and impact stress has on mental health. Pt will continue IOP tx to increase consistent use of healthy coping skills, challenge negative thoughts, and prevent decompensation.
--- NOTE | 2024-11-15 11:05 | BH.SGPN.GN ---
Behaviors/Verbalizations/Mental Status: [] Eye contact is good. Motor activity is appropriate. Appearance is casual. Speech is Appropriate. Mood is anxious. Affect is congruent. Thoughts are linear and logical. No evidence of psychosis. Client Response/Progress/Benefit: [] Pt was an attentive participant in group discussions and actively engaged during experiential activity. Attentive during psychoeducation on the 4 A's (Avoid, adapt, alter, accept) of coping with stress. Identified strategies to avoid, alter, adapt, and accept various stressors in his life.. Participated with peers on identifying the connection between the experiential activity and utilization of stress management skills. According to group both the activity and stress management require; adjusting strategies, reliance on larger support group, and oftentimes can't be done alone. Benefited from increased awareness of stress management strategies. Pt will continue IOP to improve mood stability, increase healthy coping, and improve functioning to return to work. Narrative Note: []
--- NOTE | 2024-11-19 09:05 | BH.SGPN.GN ---
Behaviors/Verbalizations/Mental Status: [] Pt alert and oriented, neatly dressed and groomed. Eye contact good. Motor activity appropriate. Speech within normal limits. Affect congruent, mood euthymic. Thoughts linear, logical, no signs of hallucinations or delusions. Reviewed pt?s symptom tracker, no risk for suicidal ideation, plan, or intent 11/19/24. Client Response/Progress/Benefit: []Pt was an active participant in group discussions. Attentive. Able to identify mental health wins including ?it?s my birthday week and I?m trying to celebrate it? pt shared in the past she has not wanted to be alive during this time of year, so this is significant. Pt also has been limiting her social media and this has helped with sleep. Pt's stressor today is ?I?m struggling with some body image stuff.? The group offered pt suggests managing this stressor and emotional support which pt reported was helpful. Pt is feeling ?optimistic? this morning. Pt receptive to feedback from peers. Benefited from group support, encouragement, and feedback. Progress noted. Will continue IOP tx to promote mood stability, reinforce healthy coping skills, and increase self-compassion. Narrative Note: []
--- NOTE | 2024-11-19 10:10 | BH.SGPN.GN ---
Behaviors/Verbalizations/Mental Status: [] Client alert and oriented, casually dressed and groomed. Eye contact good. Motor activity appropriate. Speech within normal limits. Affect congruent, mood euthymic and anxious. Thoughts linear, logical, no signs of hallucinations or delusions. Client Response/Progress/Benefit: [] Client responded well to session, contributing to discussion and engaged during the activity. Group identified the benefits of change which included: increased confidence, progressing towards goals, and improving mental and physical health. Worked with the group to identify barriers to change, which included: uncomfortable emotions such as anxiety, lack of energy, lack of supports, and negative influences. Client participated along with group in activity where they identified and discussed the emotions related to change. Benefited from increased awareness and understanding of emotions, benefits, and barriers related to change. Will continue IOP tx to promote healthy coping skills, improve self-esteem, and prevent decompensation.
--- NOTE | 2024-11-19 11:10 | BH.SGPN.GN ---
Behaviors/Verbalizations/Mental Status: []Client alert and oriented, casually dressed and groomed. Eye contact good. Motor activity appropriate. Speech within normal limits. Affect congruent, mood anxious. Thoughts linear, logical, no signs of hallucinations or delusions Client Response/Progress/Benefit: [] Pt responded well to session, attentive. Did well to process activity and work with group to relate the strategies used to overcome barriers in the activity to managing change in own life. Pt identified a change they would like to make is better communication with her . Pt identified currently being in preparation stage for this change. Pt stated goal is to create healthier communication skills. Appeared to benefit from identifying a small goal to work towards. Pt will continue IOP tx to prevent decompensation, improve daily functioning, and gain healthy coping skills. Narrative Note: []
== END 2024-11-19 23:59 ==
LOC: BHIOP 08:00
PROVIDERS: PCP Nurse Practitioner Adult Health; Referring Provider Student in an Organized Health Care Education/Training Program; Visit Provider Student in an Organized Health Care Education/Training Program
DX: F33.2 Major depressive disorder, recurrent severe without psychotic features (principal); F41.1 Generalized anxiety disorder
CPT/HCPCS: S9480; 90832; 90834; 90837; 90853

== ENCOUNTER 2024-11-20 08:04 | Outpatient (RCR) | payer SELFPAY ==
--- NOTE | 2024-11-20 09:05 | BH.SGPN.GN ---
Behaviors/Verbalizations/Mental Status: [] Eye contact is good. Motor activity is appropriate. Appearance is casual. Speech is Appropriate. Mood is dysthymic. Affect is congruent. Thoughts are linear and logical. No evidence of psychosis. Reviewed daily check in sheet and no reports of suicidal ideations or intent. Client Response/Progress/Benefit: [] Pt was an active participant in group discussions. Attentive. Daily symptom tracker notes 02/24 for anxiety. Able to identify mental health wins and healthy habits. Shared continues struggles with body image which impact her mental health. I need to accept myself for who I am. The topic was discussed at length amongst the group which lead to suggestions and strategies to improve self-image on a daily basis. Also a discussion on acceptance, vulnerability, self-confidence obstacles, and imposter syndrome. Benefited from group support, encouragement, and feedback. Will continue in IOP to maintain safety, stabilize mood, and improve functioning. Narrative Note: []
--- NOTE | 2024-11-20 10:10 | BH.SGPN.GN ---
Behaviors/Verbalizations/Mental Status: []Eye contact is good. Motor activity is appropriate. Appearance is casual. Speech is Appropriate. Mood is euthymic. Affect is congruent. Thoughts are linear and logical. No evidence of psychosis. Client Response/Progress/Benefit: [] Pt receptive to session AEB listening attentively to others and taking notes. Pt attentive and contributed throughout psychoeducation on the cognitive triangle and maintenance cycles. Pt engaged during group discussion reviewing the impact of daily activities and behaviors in either reinforcing unhealthy maintenance cycles and depression or assisting in reducing symptoms (?down? vs ?up? activities). Pt participated during interactive discussion in which pt identified their own common up activities (intimate time with and being creative) and down activities (isolating and not practicing self-care). Appeared to benefit from increased awareness of current behaviors and impact these have on mental health. Will continue IOP to increase self-compassion, reduce negative thinking patterns, and improve daily functioning. ?? Narrative Note: []
--- NOTE | 2024-11-20 11:10 | BH.SGPN.GN ---
Behaviors/Verbalizations/Mental Status: []Pt alert and oriented, casually dressed and groomed. Eye contact fair. Motor activity appropriate. Speech within normal limits. Affect congruent, mood anxious. Thoughts linear, logical, no signs of hallucinations or delusions. Client Response/Progress/Benefit: [] Pt responded well to session, attentive and engaged in group discussions and activity. Actively engaged in continued discussion about up activities and down activities. Active participant as group discussed values and the benefits that knowing one's values can have on one's mental health. Client shared they would like to focus on strengthening their value of family by being more intentional to play games with her kids and prioritize time with her . Benefited from increased awareness of their up activities and how incorporating their values into behavioral activation goals can positively impact mental health. Will continue in IOP to promote use of healthy coping skills, challenge distortions, and prevent decompensation.
--- NOTE | 2024-11-21 10:15 | BH.SGPN.GN ---
Behaviors/Verbalizations/Mental Status: []Pt alert and oriented, neatly dressed and groomed. Eye contact good. Motor activity appropriate. Speech within normal limits. Affect congruent, mood motivated. Thoughts linear, logical, no signs of hallucinations or delusions. Client Response/Progress/Benefit: [] Pt was an active participant AEB taking notes and engaging in group activity. Connected with the topic of pitfalls and listened to group discussion on barriers that prevent from choosing a healthier path to mental wellness. Group worked together to identify examples of personal pitfalls. These examples included; having unrealistic expectations, not trusting, not asking for help, and shutting down. Pt benefited from group as Pt learned to better identify potential barriers to improving mental health symptoms. Pt will continue IOP tx to increase distress tolerance, improve self-compassion, and reduce all or nothing thinking. ? Narrative Note: []
--- NOTE | 2024-11-21 11:10 | BH.SGPN.GN ---
Behaviors/Verbalizations/Mental Status: []Client alert and oriented, casually dressed and groomed. Eye contact good. Motor activity appropriate. Speech within normal limits. Affect congruent, mood content. Thoughts linear, logical, no signs of hallucinations or delusions. Client Response/Progress/Benefit: [] Pt receptive of session, engaged throughout AEB Pt actively listening and contributing to discussion as well as taking notes.? Pt participated in the experiential activity and did well to communicate ideas with peers and manage emotions. Pt attentive as group processed how the emotions and perspective of the group impacted the activity. Pt was encouraging and receptive to feedback during the activity which helped peers. Group worked together to identify different coping skills to help manage pitfalls. Pt identified pitfalls they struggle with as avoidance, unrealistic expectations, and shame in starting over. Pt plans to work on their pitfall by ?sitting to celebrate each stage.? Benefited from identifying personal pitfalls and strategies to overcome these pitfalls. Pt will continue IOP tx to prevent decompensation, improve self-compassion, and reduce negative self-talk. Narrative Note: []
--- NOTE | 2024-11-21 13:39 | BH.MDN ---
Multi-Disciplinary Note Note 30-min Individual: Date: 11/21/24
--- NOTE | 2024-11-27 09:00 | BH.SGPN.GN ---
Behaviors/Verbalizations/Mental Status: [] Pt alert and oriented, Neatly dressed and groomed. Eye contact good. Motor activity appropriate. Speech within normal limits. Affect congruent, mood anxious. Thoughts linear, logical, no signs of hallucinations or delusions. Reviewed pt?s symptom tracker, 0/5 with 5 being severe for risk for suicidal ideation, indicates a 0/5 for plan, and intent to kill self. Pt does not appear to be imminent risk to harm self.11/27/24. Client Response/Progress/Benefit: []Pt was an active participant in group discussions. Attentive. Per patients daily symptom tracker, pt indicates a 1/5 for depression and a 3/5 for anxiety, with 5 being severe. Pt shared their mental health positives as buying coffee one to two times a week versus everyday, and making healthier choices when she does order. She also reported getting to see her two year old son soon, which she has not seen since entering the program. Pt's stressor is this being her last week of IOP. She reports feeling very anxious about leaving, worrying that once she leaves, she will struggle with being without group support. Pt was supportive and attentive to others in the group. Pt seemed to benefit from support from peers. Will continue IOP tx to promote healthy coping mechanisms, reduce negative thinking patterns, and prevent decompensation.
--- NOTE | 2024-11-27 10:15 | BH.SGPN.GN ---
Behaviors/Verbalizations/Mental Status: [] Client alert and oriented, casually dressed and groomed. Eye contact good. Motor activity appropriate. Speech within normal limits. Affect congruent, mood euthymic. Thoughts linear, logical, no signs of hallucinations or delusions. Client Response/Progress/Benefit: [] Pt engaged in session AEB client listening attentively to peers and providing input. Attentive and contributed to discussion as group worked on defining self-forgiveness and identifying mental health benefit. Identified benefits as: reduce guilt/shame, increase self-confidence, decrease negative self-talk, healthier relationships, ect. ?Worked in small groups to identify factors that can make self-forgiveness difficult. Pt identified a personal barrier to self-forgiveness. Benefited from increased education on self-forgiveness, benefits, and what effects it. Pt will continue IOP tx to promote use of healthy coping skills, improve confidence, and prevent decompensation.
--- NOTE | 2024-11-27 11:15 | BH.SGPN.GN ---
Behaviors/Verbalizations/Mental Status: [] Client alert and oriented, casually dressed and groomed. Eye contact good. Motor activity appropriate. Speech within normal limits. Affect congruent, mood content. Thoughts linear, logical, no signs of hallucinations or delusions. Client Response/Progress/Benefit: [] Pt engaged in session AEB client listening attentively to peers and providing input. Attentive during psychoeducation on the 4 R?s of Self-Forgiveness (Responsibility, Remorse, Methodist, Renewal). Contributed to discussion as group worked on identifying strategies for improving ability to practice self-forgiveness. Reports wanting to practice not reassurance seeking and giving herself permission to forgive herself. Engaged in self-forgiveness activity and benefited from increased education on self-forgiveness building skills. Pt will continue IOP tx to improve mood stability, increase self-compassion, and prevent decompensation. Narrative Note: []
--- NOTE | 2024-11-27 13:40 | BH.MDN ---
Multi-Disciplinary Note Note 30-min Individual: Date: 11/27/24
--- NOTE | 2024-11-28 09:00 | BH.SGPN.GN ---
Behaviors/Verbalizations/Mental Status: [] Eye contact is good. Motor activity is appropriate. Appearance is casual. Speech is Appropriate. Mood is euthymic. Affect is full. Thoughts are linear and logical. No evidence of psychosis. Client Response/Progress/Benefit: [] Pt was an active participant in group discussions. Attentive. Able to identify mental health wins and healthy habits. Feeling ?accomplished?. Followed through with a crucial conversation last night in which she was vulnerable and honest with support. ? It was actually helpful?. Utilizing skills learned in IOP to improve communication with support. Progress noted. Benefited from group support,encouragement, and feedback. Will continue in IOP to maintain safety, increase healthy coping, and improve functioning. Narrative Note: []
--- NOTE | 2024-11-28 10:10 | BH.SGPN.GN ---
Behaviors/Verbalizations/Mental Status: [] Eye contact good, Motor activity is appropriate, Appearance is neat. Speech appropriate. Mood calm. Affect congruent. Thoughts are linear and logical. No evidence of psychosis. Client Response/Progress/Benefit: [] Pt was an active participant during interactive group discussions. Attentive during discussion of the different types of boundaries (rigid, porous, healthy) Took notes and provided input. Contributed to the discussion on defining boundaries and the benefits and barriers to them. Active participant in the boundary continuum activity. Identified boundary type as porous, sharing that she often struggles with oversharing and not prioritizing her needs. Group discussed mental health benefits to establishing boundaries, and also situations in which lessening boundaries are appropriate. Pt benefited from increased awareness and insight on the importance of boundary setting. Pt will continue in IOP to increase healthy coping skills, reduce negative thought patterns, and increase self-confidence.
--- NOTE | 2024-11-28 11:10 | BH.SGPN.GN ---
Behaviors/Verbalizations/Mental Status: []Pt alert and oriented, casually dressed and groomed. Eye contact good. Motor activity appropriate. Speech within normal limits. Affect congruent, mood euthymic. Thoughts linear, logical, no signs of hallucinations or delusions. Client Response/Progress/Benefit: [] Client responded well to session AEB listening attentively to peers, providing input, as well as taking notes throughout. Group discussed different styles of boundary setting. Worked with group to discuss positive and negative consequences from each boundary style. Participated in small group discussion brainstorming various strategies for improving healthy boundary setting. Pt took time to complete reflection on which skills would like to implement to improve boundaries. Seemed to benefit from increased awareness of how different boundary styles can impact mental health. Will continue IOP tx challenge negative thoughts, improve consistent follow through of skills, and prevent decompensation.
--- NOTE | 2024-11-29 09:00 | BH.SGPN.GN ---
Behaviors/Verbalizations/Mental Status: [] Client alert and oriented, casual appearance. Eye contact good. Motor activity appropriate. Speech within normal limits. Affect congruent, mood euthymic. Thoughts linear, logical, no signs of hallucinations or delusions. Reviewed client's symptom tracker, no risk for suicidal ideation, plan, or intent. Client Response/Progress/Benefit: [] Client responded well to session AEB listening to others and sharing thoughts/feelings. Client reported mental positive as graduating from IOP today. client noted additional mental health positive as intentionally moving her body for the past 5 days. Client stated current stressor as having to speak to her boss at 1 PM today about her future with the company. Client noted feeling grateful that she was able to do this program and learned a lot. Appeared to benefit from support from peers. Progress noted. Will discharge from IOP today. Narrative Note: []
--- NOTE | 2024-11-29 10:15 | BH.SGPN.GN ---
Behaviors/Verbalizations/Mental Status: []Pt alert and oriented, neatly dressed and groomed. Eye contact good. Motor activity appropriate. Speech within normal limits. Affect congruent, mood euthymic, anxious, and proud. Thoughts linear, logical, no signs of hallucinations or delusions. Client Response/Progress/Benefit: [] Pt engaged and actively participating in discussion, taking notes. Pt attentive during psychoeducation about the window of tolerance and noted personal connections. Group identified what contributes to low distress tolerance. The group gained awareness of the three zones of tolerance and pt was able to identify what they look like in each zone. Pt shared personal signs in hyperarousal zone are: yelling, wanting to escape, and being impulsive. Pt shared signs in the window of tolerance, they feel confident, positive, and motivated. Pt appeared to benefit from psychoeducation on distress tolerance and practicing self-reflection. Pt will discharge from IOP tx as pt has met their tx goals and no longer meets criteria for IOP level of care. Narrative Note: []
--- NOTE | 2025-02-05 16:57 | BH.DS_ITS ---
Discharge Summary Demographics Date of Admission:: 10/23/24 Discharge Date: 11/29/24 Presenting Problems at Admission:: Patient was referred by a family friend. Patient admits to having had anxiety and depression since college age. Particularly since November of last year had suicidal ideation of wanting to complete suicide by gunshot. Had thoughts that if I had a gun, this would of been it. Did not go to the hospital following this time. In July of 2023 had started working fulltime outside of the home. Is currently on leave from work since the 06 of September with a return to work date of November 28 or . Client notes mental health has been impacting her ability to function at work with completing tasks, which was contributing factor to taking leave from work. Client's mental health impacting sleep quality, difficulty concentrating, appetite increased, and low energy. Client has difficulty completing [employer] services and feels her anxiety makes it challenging to manage daily stressors. Discharge Diagnoses:: Major depressive disorder Generalized anxiety disorder Diagnosis Code(s):: F33.2; F41.1 Reason for Discharge:: Pt has demonstrated treatment progress on her therapeutic goals and no longer meets criteria for [facility] level of care. Treatment Progress During Treatment & Response: Per DSM 5 cross-cutting symptom measure client's scores indicate a 40% decrease in depression, a 33% decrease in depression, 100% decrease in thoughts of wanting to hurt herself, and a 38% reduction in overall mental health symptoms. Client reported she has seen progress with improved daily functioning, decreased alcohol use throughout the week, improved communication with her , and no suicidal thoughts for the last couple of weeks. Client reported she is feeling more stable to get back into the workforce. Client noted improved ability to manage her depressed and anxious symptoms. Client engaged in treatment as demonstrated by consistent attendance and engagement in group sessions. Issues Still to be Addressed:: Client could benefit from continued reinforcement of healthy coping skills, challenging negative thoughts, and continuing open and honest communication with her . Discharge Recommendations/Instructions:: Client is recommended to continue counseling and psychiatry services at [place] [id number] where she is already established as a patient. Discharge Handout
== END 2024-11-29 12:37 | disposition home or self-care (01) ==
LOC: BHIOP 08:04
PROVIDERS: PCP Nurse Practitioner Adult Health; Referring Provider Student in an Organized Health Care Education/Training Program; Visit Provider Student in an Organized Health Care Education/Training Program
DX: F33.2 Major depressive disorder, recurrent severe without psychotic features (principal); F41.1 Generalized anxiety disorder
CPT/HCPCS: S9480; 90832; 90834; 90853